=== PATIENT | female | born 1940 | race Native Hawaiian/Other Pacific Islander ===

== ENCOUNTER 2018-10-05 15:19 | Outpatient (CLI) | payer OTHER | END 2018-10-05 21:37 | disposition home or self-care (01) | LOC: RAD 15:19 | DX: R05 Cough (principal) ==

== ENCOUNTER 2018-10-10 10:11 | Outpatient (CLI) | payer OTHER | END 2018-10-10 20:23 | disposition home or self-care (01) | LOC: CT 10:11 | DX: R91.8 Other nonspecific abnormal finding of lung field (principal) | CPT/HCPCS: 36415; 82565; 84520; Q9963 ==